=== PATIENT | female | born 1990 | race Hispanic/Latino ===

== ENCOUNTER 2018-02-28 13:55 | Outpatient (CLI) | payer OTHER ==
--- NOTE | 2018-02-28 15:24 | ULT ---
OBSTETRIC SONOGRAM TWIN : HISTORY: Twin gestation. Large for dates. Third trimester. FINDINGS: Multiple transabdominal sonographic views of the gravid uterus show a twin intrauterine gestation. G rade I placenta is posterior. Cervix is mostly obscured by ossified cranium. Fetus A designated as that in breech presentation. The amniotic fluid index is 9.6. Advanced age limits anatomic detail. Heart motion at 147 b.p.m. Measurements are as follows: Biparietal diameter 29 weeks 5 days. Head circumference 31 weeks 2 days. Abdominal circumference 30 weeks 5 days. Femur length 31 weeks 0 days. Estimated date of delivery based on today's sonogram 05/04/18. Estimated weight 1342 gm (3 agustina nds 10 ounces). Fetus B is designated as that in cephalic presentation. Posterior placenta. Amniotic fluid index 8. 3. Heart motion at 147 b.p.m. Advanced age limits anatomic detail. Measurements are as follows: Biparietal diameter 29 weeks 6 days. Head circumference 30 weeks 4 days. Abdominal circumference 30 weeks 6 days. Femur length 31 weeks 0 days. Estimated date of delivery based on today's sonogram 05/05/18. Estimated weight 1638 gm. IMPRESSION: Twin viable intrauterine gestation with estimated gestational ages of 30 weeks 5 days and 30 weeks 4 days. POS: [facility]
== END 2018-02-28 13:56 | disposition home or self-care (01) ==
LOC: SCSULT 13:55
PROVIDERS: ATTEND Obstetrics & Gynecology
DX: O30.003 Twin pregnancy, unspecified number of placenta and unspecified number of amniotic sacs, third trimester (principal); Z3A.31 31 weeks gestation of pregnancy
CPT/HCPCS: 76810

== ENCOUNTER 2018-03-11 15:06 | Outpatient (CLI) | payer OTHER ==
--- NOTE | 2018-03-11 19:06 | ULT ---
ULTRASOUND OBSTETRICAL COMPLETE: Date: 03/11/18 HISTORY: O30.003 twin in third trimester. COMPARISON: 02/28/18. FINDINGS: There is a twin gestation. Because this is third trimester, it is difficult to determine amnionicity. Maternal cervix: Poorly visualized. TWIN A: lie: Breech. heart rate: 139 BPM. Placenta: anterior. No placenta previa. Amniotic fluid volume: PJ 8.5 cm. anatomy: Head, four chamber heart, stomach, cord insertion, bladder, and three vessel cord are visualized. The rest of the anatomy is not well visualized due to third trimester stage of . BPD: 8.9 cm, 35W/5D HC: 31.5 cm, 35W/3D AC: 31.9 cm, 35W/6D FL: 6.8 cm, 35W/0D AUA: 35W/4D EDC: 04/11/2018. EFW: 2702 g +/- 400 g (5 lb 15 oz +/- 14 oz) TWIN B: Placenta: Posterior. Amniotic fluid: PJ 8.0 cm. heart rate: 152 BPM. lie: Cephalic. anatomy: Head, four chamber heart, stomach, cord insertion, bladder, and three vessel cord are visualized. The rest of the anatomy is not well visualized. BPD: 8.2 cm, 32W/6D HC: 31.5 cm, 35W/3D AC: 30.1 cm, 34W/0D FL: 6.2 cm, 32W/2D AUA: 33W/6D EDC: 04/23/2018. EFW: 2225 g +/- 329 g (4 lb 14 oz +/- 12 oz) There are abnormally dilated maternal blood vessels on the right side of the uterus, a new finding si nce the previous ultrasound. IMPRESSION: 1. Third trimester dichorionic twin gestation. 2. A discrepancy has developed between the sizes of Twin A and Twin B. Twin A is larger (measuring 1 2 days larger than Twin B). This raises the possibility of macrosomia for Twin A. 3. Apparently new very dilated maternal blood vessels to the right side of the uterus. POS: [facility]
== END 2018-03-11 15:07 | disposition home or self-care (01) ==
LOC: SCSULT 15:06
PROVIDERS: ATTEND Student in an Organized Health Care Education/Training Program
DX: O30.003 Twin pregnancy, unspecified number of placenta and unspecified number of amniotic sacs, third trimester (principal); O35.8XX2 Maternal care for other (suspected) fetal abnormality and damage, fetus 2; Z3A.35 35 weeks gestation of pregnancy
CPT/HCPCS: 76810

== ENCOUNTER 2018-03-21 15:14 | Outpatient (CLI) | payer MEDICAID ==
--- NOTE | 2018-03-21 16:50 | ULT ---
SONOGRPAHIC BIOPHYSICAL PROFILE TWIN A: SONOGRAPHIC BIOPHYSICAL PROFILE TWIN B: HISTORY: Twin . FINDINGS: Fetus A is designated as that, in cephalic presentation, with good tone, gross movements, and b reathing movements. Amniotic fluid index is 6.3. Fetus B is designated as that, in breech presentation, with foot tone, breathing movements, and gross movements demonstrated. Amniotic fluid index 7.4. IMPRESSION: Sonographic biophysical profile score for each twin is 8/8. POS: [facility]
== END 2018-03-21 15:15 | disposition home or self-care (01) ==
LOC: SCSULT 15:14
PROVIDERS: ATTEND Student in an Organized Health Care Education/Training Program
DX: O30.003 Twin pregnancy, unspecified number of placenta and unspecified number of amniotic sacs, third trimester (principal)
CPT/HCPCS: 76819

== ENCOUNTER 2018-03-28 15:08 | Outpatient (CLI) | payer MEDICAID, OTHER ==
--- NOTE | 2018-03-28 17:53 | ULT ---
OB ULTRASOUND 03/28/18 HISTORY: Twin intrauterine gestation in third trimester. Followup growth. COMPARISON: 03/11/18. FINDINGS: Again noted is twin intrauterine gestation with membrane between each fetus. The cervix is mostly obscured due to shadowing. TWIN A: lie: Breech. heart rate: 133 beats per minute. Placenta: Anterior without placenta previa. Amniotic fluid index 10.1 cm. measurements twin A: Biparietal diameter 8.58 cm 34 weeks, 4 days Head circumference 31.69 cm 35 weeks, 4 days Abdominal circumference 32 cm 35 weeks, 6 days Femur length 6.96 cm 35 weeks, 5 days The estimated gestational age of twin A is 35 weeks and 3 days with MARCE on 04/29/18. Gestational age by the last menstrual period is 35 weeks and 5 days. Estimated weight of twin A is 2742 grams (6 lb. 1 oz.). This represents the 49th percentile for weight. There has been interval growth when compared to the prior exam. TWIN B: lie: Breech. heart rate: 140 beats per minute. Placenta: Posterior. Amniotic fluid index 8.5 cm. measurements twin B: Biparietal diameter 8.35 cm 33 weeks, 4 days Head circumference 30.65 cm 34 weeks, 1 days Abdominal circumference 30.01 cm 34 weeks Femur length 6.61 cm 34 weeks The estimated gestational age of twin B by ultrasound is 34 weeks with MARCE on 05/09/18. Gestational a ge by the last menstrual period is 35 weeks and 5 days. Estimated weight of twin B is 2320 grams (5 lb. 2 oz.). This represents the 11th percentile for weight. There has been interval growth when compared to the prior exam. anatomical structures were not evaluated on this examination but were evaluated on prior study. IMPRESSION: 1. Twin intrauterine gestation with membrane noted. 2. Estimated gestational age of twin A by ultrasound is 35 weeks and 3 days with MARCE on 04/29/18 with gestational age of twin B of 34 weeks with estimated date of delivery on 05/09/18. 3. Estimated weight of twin A is 2742 grams (6 lb. 1 oz.) with estimated weight of t win B of 2320 grams (5 lb. 2 oz.). 4. Amniotic fluid index of twin A is 10.1 cm with amniotic fluid index of twin B measuring 8.5 c m. POS: [facility]
== END 2018-03-28 15:09 | disposition home or self-care (01) ==
LOC: SCSULT 15:08
PROVIDERS: ATTEND Student in an Organized Health Care Education/Training Program
DX: O30.003 Twin pregnancy, unspecified number of placenta and unspecified number of amniotic sacs, third trimester (principal); Z3A.35 35 weeks gestation of pregnancy
CPT/HCPCS: 76810

== ENCOUNTER 2018-04-11 20:45 | Inpatient (IN) | payer OTHER, SELFPAY ==
[2018-04-11 21:26] VITALS: BMI 36.7
[2018-04-11] MEDS: Lactated Ringer's 1,000 ML IV SCH (21:27)
[2018-04-11] MEDS ORDERED: Acetaminophen 500 MG TAB PO PRN (21:41)
[2018-04-11] MEDS ORDERED: Promethazine HCl 25 MG/ML VIAL IM PRN (21:41)
[2018-04-11] MEDS ORDERED: Ondansetron PF 4 MG/2 ML Vial IVP PRN (21:41)
[2018-04-11] MEDS ORDERED: Bicitra 30 ML UDCUP PO SCH (21:45)
[2018-04-11] MEDS ORDERED: NS / Oxytocin 40 units/1000ml 1,000 ML IV PRN (21:50)
[2018-04-11] MEDS ORDERED: Calcium Gluc 4.6 MEQ/10 ML (100 MG/ML) SLOW IVP PRN (21:50)
[2018-04-11] MEDS ORDERED: Lidocaine 1% (PF) 30 ML VIAL SC PRN (21:50)
[2018-04-11 21:54] LABS: Mean Corpuscular HGB CONC 33.6 g/dL (32.0-36.0); Mean Corpuscular Hemoglobin 30.5 pg (27.0-31.0); Mean Corpuscular Volume 90.8 fL (78.0-98.0); Mean Platelet Volume 9.5 fL (7.4-10.4); Platelet Count 138 thou/uL (130-400); RBC Distribution Width 14.3 % (11.5-14.5); Red Blood Cell (RBC) Count 3.92 mill/uL (4.20-5.40); White Blood Cell (WBC) Count 6.7 thou/uL (4.8-10.8)
--- NOTE | 2018-04-11 21:56 | PDOC.EVN ---
Event Note - Event Note Event Note: Faculty note: GBS coverage: No record found. I have requested one but Dr Damon not sure if she can get it. Unknown GBS status...defaults to risk factors (none yet)
--- NOTE | 2018-04-11 21:57 | PDOC.LDHP ---
Addendum entered and electronically signed by Atif Wilde MD 04/11/18 22:31: PIH - elevated pressure, 150/73 - no hx of elevated pressure per patient - will check CMP, CBC - monitor pressures Original Note: Labor and Delivery H&P Chief complaint: contractions HPI: This is a 27 yo F, , with di-di twins at 37.6 wks gestation w/ EDC 04/26/18 per record review. She comes in for eval of contractions every 10 minutes that have been becoming increasingly painful over the last 2 days. She does feel baby moving often. She denies vaginal bleeding, discharge, or rupture of membranes. States she has had slight burning with urination for the last few days, no blood in the urine. She denies headache, sob, or visual changes. Has had mild swelling at the ankles over the last few weeks. No N/V/D, no fevers, chills, or sweats. ROS General: denies: fever/chills, night sweats ENT: denies: sore throat, nasal congestion Cardiovascular: denies: chest pain, palpitation Respiratory: denies: cough, congestion, shortness of breath Gastrointestinal: denies: abdominal pain, constipation Genitourinary (Female): reports: dysuria denies: hematuria Neurologic: denies: numbness, weakness Integumentary: denies: rash Psychological: denies: depression PE General: NAD, awake, alert and oriented HEENT: normocephalic and atraumatic Neck: supple Heart: RRR, normal S1/S2 General: CTAB, no respiratory distress, good air movement Abdomen: soft, gravid Musculoskeletal: normal gait and station, pulses present Neurological: cranial nerves II through XII intact, no focal deficit Skin: capillary refill <2 seconds Current gestational age (weeks): 37 (37.6 wks) Due date: 04/26/18 Grav: 2 Para: 1 OB History Details: 1 term , uncomplicated per patient Current complications: di/di twins Past Medical History: negative per patient Current medications: pre- vitamins Previous surgical history: none Social history: none - Physical Exam Abnormal vital signs: blood pressure 150/73 FHT: category 1 - Vaginal Exam cm dilated: 0 Effacement: 0% Station: -3 - Plan -: # Term di/di labor r/o - 0/0/3 - Category 1 strip, cxns q8-10 minutes - scheduled for primary c/s on 04/14 - bedside US shows twin A vertex, twin B breech - mother would prefer vaginal delivery if possible - will admit for monitoring/induction, plan to start cytotec if indicated around midnight - will await records from [facility] - GBS status unknown, no risk factors at this time <Atif Wilde - Last Filed: 04/11/18 22:18> - Plan Plan: other (Patient seen and examined with Dr Wilde. Sono to confirm that TWIN A was cephalic was performed by Dr Wilde in my presence. Case reported to Dr Damon. We will admit for trial of cytotec for PIH. Check CMP. No PIH severe criteria.) <Alex Dahl - Last Filed: 04/11/18 22:43> Allergies/Adverse Reactions: Allergies Allergy/AdvReac Type Severity Reaction Status Date / Time No Known Drug Allergies Allergy Verified 04/11/18 21:14
[2018-04-11] MEDS ORDERED: Misoprostol 100 MCG TAB VAG SCH (22:00)
[2018-04-11 22:04] LABS: #Eosinphils 0.1 thou/uL (0.0-0.7); #Monocytes 0.6 thou/uL (0.11-0.59); #Neutrophils 3.8 thou/uL (1.40-6.50); %Basophils 0.6 % (0.0-1.0); %Eosinophils 0.8 % (0.0-10.0); %Lymphocytes 30.9 % (21.0-51.0); %Monocytes 9.6 % (0.0-10.0); %Neutrophils 58.1 % (42.0-75.0); Mean Corpuscular HGB CONC 33.1 g/dL (32.0-36.0); Mean Corpuscular Hemoglobin 30.1 pg (27.0-31.0); Mean Corpuscular Volume 90.8 fL (78.0-98.0); Mean Platelet Volume 9.5 fL (7.4-10.4); Platelet Count 133 thou/uL (130-400); RBC Distribution Width 14.3 % (11.5-14.5); Red Blood Cell (RBC) Count 3.97 mill/uL (4.20-5.40); White Blood Cell (WBC) Count 6.5 thou/uL (4.8-10.8)
--- NOTE | 2018-04-11 22:36 | HP ---
DATE OF ADMISSION: 04/11/2018 FACULTY H&P TIME OF EVALUATION: Roughly 2150 hours. LOCATION: Labor and Delivery triage A. REASON FOR EVALUATION: This is a patient of Dr. Damon. The patient has known twins and is at 37 weeks and 5 days. She was scheduled for on Saturday for persistent twin A breech presentation. The patient here for contractions. HISTORY OF PRESENT ILLNESS: In brief, this is a 27-year-old 2 , para 1 with a prior vaginal delivery in the past which was at term. She is now at 37 weeks and 5 days by stated EDC with irregular contractions. She is well known to Dr. Damon and I have been in communication with her since her arrival from the emergency department check in. This patient denies vaginal bleeding or leakage of fluid. She denies headaches or visual changes or right upper quadrant discomfort. REVIEW OF SYSTEMS: Complete review of systems was checked and is otherwise negative unless specified in the HPI. PAST MEDICAL HISTORY: Negative. PAST SURGICAL HISTORY: None. OB HISTORY: Significant for a vaginal delivery at term. SOCIAL HISTORY: Negative for alcohol, tobacco and drug use. PHYSICAL EXAMINATION: VITAL SIGNS: Blood pressures ranged from 150/80s to 140/90s. She is afebrile and respirations are unlabored. GENERAL: Clinically, she is in no acute distress. ABDOMEN: Gravid. PELVIS: Cervical exam by Dr. Wilde, performed under my presence, was closed. No evidence of vaginal bleeding or ruptured membranes. On monitor, heart tones are in the 130s-140s x2 with moderate variability. There are uterine irregular contractions on the tocodynamometer. Bedside ultrasound was confirmed to evaluate baby's positions and twin A was actually cephalic and twin B is transverse. This also agrees with the report that she gave and the patient had an ultrasound for position earlier today in the clinic and twin A was indeed cephalic. ASSESSMENT: This is a patient at 37 weeks and 5 days, G2, P1, with known twins who was thought to be breech-breech, but who now with twin A cephalic and twin B breech. Her blood pressures are mild range hypertensive. She is asymptomatic. PLAN: 1. I have discussed this case in depth with Dr. Damon. 2. Although, she is not grossly dilated, the fact that she has twins, almost 38 weeks, with borderline blood pressures, we will keep the patient for delivery due to her elevated blood pressures. 3. Cytotec will be ordered for her starting at midnight. 4. As twin A may be an unstable lie, as it was previously breech, we will evaluate the baby's position intrapartum and as labor progresses. 5. The patient was offered a primary versus trial of vaginal delivery and the patient does indeed desire a vaginal . She is aware that if the baby's position changes or becomes unstable she will require a . 6. Plan discussed with the patient, the nurses, and Dr. Atif Wilde who help to evaluate the patient. 7. The patient has a handwritten H&P in the physical chart as well. 8. We will also order a complete metabolic profile. MTDD
[2018-04-11 22:59] LABS: ALT (SGPT) 11 U/L (8-55); AST (SGOT) 22 U/L (5-34); Albumin 3.5 g/dL (3.5-5.0); Alkaline Phosphatase 244 U/L (40-150); Anion Gap 13 mmol/L (10-20); BUN (Urea Nitrogen) 10 mg/dL (7.0-18.7); Bilirubin, Total 0.2 mg/dL (0.2-1.2); Calc. Creatinine Clearance 182 mL/min (70-130); Calcium 8.6 mg/dL (7.8-10.44); Carbon Dioxide 21 mmol/L (22-29); Chloride 107 mmol/L (98-107); Estimated GFR-MDRD Greater than 90; Globulin 2.9 g/dL (2.4-3.5); Glucose 76 mg/dL (70-105); Potassium 4.3 mmol/L (3.5-5.1); Protein, Total 6.4 g/dL (6.0-8.3); Sodium 137 mmol/L (136-145)
[2018-04-11 23:08] LABS: Syphilis Antibody Nonreactive (Nonreactive); Syphilis Antibody Index 0.04 S/CO (<1.00 Non-Reactive)
[2018-04-11 23:24] LABS: HBSAg Index 0.23 S/CO (0-0.99); Hep B Surf Ag Non-Reactive S/CO (NonReactive)
[2018-04-12] MEDS: Lactated Ringer's 1,000 ML IV SCH ×3 (02:33→22:54)
--- NOTE | 2018-04-12 06:34 | PDOC.LDPN ---
Labor & Delivery Progress Note - Subjective Subjective: painful contractions - Objective Vital signs reviewed and normal: yes General: NAD Uterine fundus: non tender Dilation: 3 Effacement: 50% Station: -3 FHT: category 1 ( x2) [place] contractions every: 3min Procedures: ultrasound shows breech presentation - Assessment (1) Twin delivered Code(s): O30.009 - TWIN , UNSP NUM PLCNTA & AMNIO SACS, UNSP TRIMESTER Current Visit: Yes Status: Acute (2) Breech presentation Code(s): O32.1XX0 - MATERNAL CARE FOR BREECH PRESENTATION, UNSP Current Visit : Yes Status: Acute Qualifiers: Fetus number: fetus 1 of multiple gestation Qualified Code(s): O32.1XX1 - Maternal care for breech presentation, fetus 1 (3) delivery delivered Code(s): O82 - ENCOUNTER FOR DELIVERY WITHOUT INDICATION Current Visit: Yes Status: Acute -: Breech by sono and on exam, baby B on maternal right cephalic. Dispo for PCS for malpresentation with unstable lie. FHT reassuring x 2.
[2018-04-12] MEDS ORDERED: Bicitra 30 ML UDCUP PO SCH (06:45)
[2018-04-12] MEDS ORDERED: CEFAZOLIN 2 GM/50 ML BAG IVPB SCH (07:00)
[2018-04-12] MEDS ORDERED: Morphine PF 1 MG/ML SYR ONE (07:18)
[2018-04-12] MEDS ORDERED: ePHEDrine/0.9% NaCl/PF SYRINGE 50 mg/10 ml ONE (07:19)
[2018-04-12] MEDS ORDERED: Bupivacaine 0.75% W/DEXTROSE 8.25% 2 ML AMP ONE (07:19)
[2018-04-12] MEDS ORDERED: Ondansetron PF 4 MG/2 ML Vial ONE ×2 (07:19→14:33)
[2018-04-12] MEDS ORDERED: Oxytocin 10 UNITS/ML VIAL ONE (07:19)
[2018-04-12] MEDS ORDERED: Lidocaine 1% PF 5 ML VIAL ONE (07:19)
[2018-04-12] MEDS ORDERED: L&D-Morphine 4 MG/ML VIAL SLOW IVP PRN (08:11)
[2018-04-12] MEDS ORDERED: Eucerin (Mineral Oil/Petrolatum,White) 30 gm Jar TOP PRN (08:11)
[2018-04-12] MEDS ORDERED: diphenhydrAMINE 50 MG/ML VIAL IVP PRN (08:11)
[2018-04-12] MEDS ORDERED: Promethazine HCl 25 MG SUPP PR PRN (08:11)
[2018-04-12] MEDS ORDERED: Ondansetron PF 4 MG/2 ML Vial IVP PRN ×2 (08:11→15:39)
[2018-04-12] MEDS ORDERED: Meperidine HCl/PF 25 MG/ML VIAL SLOW IVP PRN (08:11)
[2018-04-12] MEDS ORDERED: Naloxone HCl 0.4 mg/ml Vial IVP PRN ×2 (08:11)
[2018-04-12] MEDS ORDERED: Ondansetron HCl/PF 4 MG/2 ML Vial IVP PRN (08:11)
[2018-04-12] MEDS ORDERED: Promethazine HCl 25 MG/ML VIAL IM PRN (08:11)
[2018-04-12] MEDS ORDERED: HYDROmorphone 2 MG/ML VIAL SLOW IVP PRN (08:11)
[2018-04-12] MEDS ORDERED: Naloxone HCl 0.4 mg/ml Vial IV PRN (08:11)
[2018-04-12] MEDS ORDERED: Ketorolac Tromethamine 30 MG/ML VIAL IVP SCH (08:15)
[2018-04-12] MEDS ORDERED: Communication Order-Pharmacy FS SCH (08:15)
--- NOTE | 2018-04-12 08:38 | PDOC.OPDEL ---
OB Operative/Delivery Note Delivery Dr/Surgeon: Marisol Assist: n/a Pre-Delivery Diagnosis: breech (edenilson twins, early labor, GHTN) Procedure/Post Delivery Dx: primary low transverse CS Weeks gestation: 37 Anesthesia: spinal - Findings A Sex: female B Sex: female - Additional Findings/Plan Placenta delivered: spontaneous findings: low transverse hysterotomy without extension, normal uterus, normal tubes, normal ovaries Estimated blood loss: 1200cc, qbl pending Post delivery plan: routine recovery
[2018-04-12] MEDS ORDERED: Methylergonovine 0.2 MG/ML VIAL ONE (10:42)
[2018-04-12] MEDS: Ketorolac Tromethamine 30 MG/ML VIAL IVP PRN (11:12)
[2018-04-12] MEDS ORDERED: Ketorolac Tromethamine 30 MG/ML VIAL ONE (11:12)
[2018-04-12] MEDS ORDERED: Acetaminophen 325 MG TAB PO PRN (15:39)
[2018-04-12] MEDS ORDERED: diphenhydrAMINE 25 MG CAP PO PRN (15:39)
[2018-04-12] MEDS ORDERED: Lanolin Ointment 7 GM TUBE TOP PRN (15:39)
[2018-04-12] MEDS ORDERED: Adacel (T-DAP) 0.5 ML VIAL IM ONE (15:39)
[2018-04-12] MEDS ORDERED: Simethicone Chewable 80 MG TAB PO PRN (15:39)
[2018-04-12] MEDS ORDERED: Bisacodyl 10 MG SUPP PR PRN (15:39)
[2018-04-12] MEDS ORDERED: Docusate Calcium (SURFAK) 240 MG CAP PO SCH (16:00)
[2018-04-12] MEDS ORDERED: Ferrous Sulfate 325 MG TAB PO SCH (16:00)
[2018-04-12] MEDS ORDERED: Prenatal Vitamin 1 TAB PO SCH (16:00)
--- NOTE | 2018-04-12 19:43 | OP ---
DATE OF PROCEDURE: 04/12/2018 PREOPERATIVE DIAGNOSES: 1. Intrauterine at 37 weeks, 5 days. 2. Male presentation baby A presenting breech. 3. Early labor. 4. Gestational hypertension. POSTOPERATIVE DIAGNOSES: 1. Intrauterine at 37 weeks, 5 days. 2. Male presentation baby A presenting breech. 3. Early labor. 4. Gestational hypertension. 5. hemorrhage. PROCEDURE: Primary low transverse section via Pfannenstiel skin incision. ANESTHESIA: Spinal. ATTENDING SURGEON: Brittany Damon M.D. PILE DRIVING SETTER: Samantha Boothe. ESTIMATED BLOOD LOSS: 1610. URINE OUTPUT: 600 mL of clear urine. PATHOLOGY: Placenta. COMPLICATIONS: None. DRAINS: العلي catheter. FINDINGS: Baby A girl, complete breech, clear amniotic fluid. Apgars and weight currently pending, vigorous baby B cephalic clear fluid. Apgars, weight currently pending, vigorous. Normal uterus, ov lucien and tubes bilaterally. OPERATIVE TECHNIQUE: The patient was taken to the operating room where spinal anesthesia was obtaine d without difficulty. The patient was prepped and draped in a sterile fashion in the dorsal supine p osition with a leftward tilt. After ensuring adequacy of anesthesia, a Pfannenstiel skin incision wa s made and carried down to the underlying subcutaneous tissue with the knife and the Bovie for hemost asis. The fascia was nicked in the midline with the Bovie and carried laterally with the Rosario scisso rs. The superior aspect of the fascia was tented with 2 Kochers and dissected off the rectus bluntly . The inferior aspect of the fascia was tented with 2 Kochers and dissected off the rectus with the Rosario scissors. Perforators were cauterized. The peritoneum was bluntly entered and manually retract ed. The Clement O retractor was placed. The lower uterine segment was incised in a transverse fashio n and extended with the Mcgee maneuver. The breech was brought to the hysterotomy and delivered with standard breech maneuvers without difficulty using a moist towel. The 's cord was clamped and handed to awaiting sb team. The second baby was presenting cephalic and the head was grasped and brought to the hysterotomy and delivered with fundal pressure followed by the body without diffi culty. The cord was clamped and handed to awaiting sb team. Cord blood was obtained of both placen tas and the placenta was allowed to spontaneously deliver. There were multiple venous lakes at the l evel of the hysterotomy that were briskly bleeding and these were clamped with ring forceps. The alvaro rine tone was noted to improve quickly after placental delivery and administration of Pitocin. The h ysterotomy was then repaired with #1 Monocryl in a running locking fashion. There was diffuse oozing from the hysterotomy noted. At that time, a second imbricating layer was placed of #1 Monocryl in a horizontal fashion. There was continued oozing from the mid portion of the hysterotomy and this was attempted to be hemostatic with first a oazirz-hj-gluwo #1 Monocryl followed by a yayvpn-tv-dyatd of 2-0 Vicryl. It was noted; however, each stitch that was thrown just cause a little more serosal ble eding due to these large venous lakes underlying therefore, pressure was held for approximately 2 min utes and bleeding was noted to greatly improved. FloSeal was called for at that time, there was no e xcessive bleeding at that time. However, the majority of the hemorrhage occurred during immediately following the placental delivery and during the repair of the hysterotomy. The FloSeal was placed an d hemostasis was noted to be excellent. Prior to this, copious irrigation of the pelvis and pericoli c gutters was performed and all clots were suctioned. The Clement was removed out of the abdomen. Th e peritoneum was closed with a 2-0 chromic in a running fashion. The rectus muscles were examined an d noted to be hemostatic. The fascia was reapproximated with a #1 PDS x1 suture with excellent reapp roximation. Subcutaneous tissue was irrigated and cauterized of any bleeders and reapproximated with a 2-0 plain gut in a running fashion and the skin was closed with 4-0 Monocryl in subcuticular fashi on. Dermabond was applied. The patient tolerated procedure well. Sponge and needle counts were cor rect x2. The patient was taken to recovery room in stable condition.
[2018-04-12] MEDS ORDERED: HYDROcodone/Acetaminophen 5/325 mg Tablet PO PRN (20:15)
[2018-04-12] MEDS: Docusate Calcium (SURFAK) 240 MG CAP PO SCH (21:45)
[2018-04-13] MEDS: Ketorolac Tromethamine 30 MG/ML VIAL IVP PRN (03:06)
[2018-04-13 06:23] LABS: Hemoglobin 8.6 g/dL (12.0-16.0); Mean Corpuscular HGB CONC 33.5 g/dL (32.0-36.0); Mean Corpuscular Hemoglobin 30.4 pg (27.0-31.0); Mean Corpuscular Volume 90.8 fL (78.0-98.0); Mean Platelet Volume 8.7 fL (7.4-10.4); Platelet Count 7 thou/uL (130-400); RBC Distribution Width 14.3 % (11.5-14.5); Red Blood Cell (RBC) Count 2.82 mill/uL (4.20-5.40); White Blood Cell (WBC) Count 10.8 thou/uL (4.8-10.8)
[2018-04-13 07:54] LABS: Hemoglobin 8.7 g/dL (12.0-16.0); Mean Corpuscular HGB CONC 33.1 g/dL (32.0-36.0); Mean Corpuscular Hemoglobin 30.2 pg (27.0-31.0); Mean Corpuscular Volume 91.1 fL (78.0-98.0); Mean Platelet Volume 8.2 fL (7.4-10.4); Platelet Count 118 thou/uL (130-400); RBC Distribution Width 14.4 % (11.5-14.5); Red Blood Cell (RBC) Count 2.88 mill/uL (4.20-5.40)
[2018-04-13 08:16] LABS: #Lymphocytes 1.8 thou/uL (1.20-3.40); #Monocytes 0.7 thou/uL (0.11-0.59); #Neutrophils 9.4 thou/uL (1.40-6.50); %Basophils 0.3 % (0.0-1.0); %Eosinophils 0.2 % (0.0-10.0); %Lymphocytes 14.9 % (21.0-51.0); %Monocytes 6.2 % (0.0-10.0); %Neutrophils 78.4 % (42.0-75.0)
[2018-04-13 08:23] LABS: Band 3 % (5-11); Large Platelets SLIGHT; Lymphocytes 13 % (21-51); MDiff Complete? YES; Monocytes 9 % (0-10); Neutrophil 74 % (42-75); PLT Morphology Comment Appears Decreased; Polychromasia SLIGHT = 2-3 cells (100X) (0-2/hpf); Reactive Lymphocytes 1 % (0-10)
[2018-04-13] MEDS: Docusate Calcium (SURFAK) 240 MG CAP PO SCH ×2 (09:30→21:28)
[2018-04-13] MEDS: Ferrous Sulfate 325 MG TAB PO SCH ×2 (09:30→15:03)
[2018-04-13] MEDS: Prenatal Vitamin 1 TAB PO SCH (09:30)
--- NOTE | 2018-04-13 09:35 | PRG ---
DATE OF SERVICE: 04/13/2018 TIME OF SERVICE: 0700. SUBJECTIVE: The patient is postoperative day #1 from a primary section for breech presentat ion. She had an approximately 1600 mL Quantitative blood loss at the time of section. The patient has been resting well with stable vital signs, pulse less than 100. Good urine output. No b lood noted in the urine. Minimal amount of blood noted on the pad. PHYSICAL EXAMINATION: GENERAL: female resting comfortably, denies significant pain. ABDOMEN: Soft and nontender, without rebound or guarding. There is no distention. Fundus is firm. EXTREMITIES: Without clubbing, cyanosis or edema. LABORATORY STUDIES: Hematocrit this morning went from 36-26, which is not unexpected from the patien t's QBL. Platelet count is reported as having dropped from 33,000-7000 currently. Initial callback of critical value from the lab with a value of 75,000. entry level receptionist into the computer system from the lab was delayed approximately 30-45 minutes from call back and entered value was 7000. Upon calling the lab, there have been a ion exchange operator the shift technicians and the current shift animal health technician says t hat as far she can tell the actual value is 7000. It is unclear as to whether that is being read off of the actual machinery doing the CBC with platelet count or if she is just relaying that from some sort of manual process for the transfer of the results. Clinically, the patient's platelet count is not 7000 as there is no evidence of spontaneous hemorrhag e. A 75,000 makes much more sense considering the patient's surgical procedure, blood loss, and curr ent vital signs. We will have the patient remain in bed still and perform a stat repeat CBC with ana m telet count on her at this time and follow up those results. Dr. Philipp Carmona will be taking as OB Hospitalist at 0800 and will check out this patient if CBC not resulted by that time. If the actu al platelet count is 7000, we will transfuse platelets and consult Hematology or critical care.
[2018-04-13] MEDS: HYDROcodone/Acetaminophen 5/325 mg Tablet PO PRN (09:37)
[2018-04-13 10:03] LABS: Hemoglobin 9.1 g/dL (12.0-16.0); Mean Corpuscular HGB CONC 33.6 g/dL (32.0-36.0); Mean Corpuscular Hemoglobin 30.4 pg (27.0-31.0); Mean Corpuscular Volume 90.4 fL (78.0-98.0); Mean Platelet Volume 7.9 fL (7.4-10.4); Platelet Count 111 thou/uL (130-400); RBC Distribution Width 14.1 % (11.5-14.5); Red Blood Cell (RBC) Count 2.99 mill/uL (4.20-5.40); White Blood Cell (WBC) Count 12.3 thou/uL (4.8-10.8)
[2018-04-13 10:36] LABS: #Lymphocytes 1.7 thou/uL (1.20-3.40); #Monocytes 0.7 thou/uL (0.11-0.59); #Neutrophils 9.9 thou/uL (1.40-6.50); %Basophils 0.2 % (0.0-1.0); %Eosinophils 0.3 % (0.0-10.0); %Lymphocytes 13.4 % (21.0-51.0); %Monocytes 5.5 % (0.0-10.0); %Neutrophils 80.5 % (42.0-75.0); Band 4 % (5-11); Lymphocytes 10 % (21-51); MDiff Complete? YES; Monocytes 10 % (0-10); Neutrophil 72 % (42-75); PLT Morphology Comment Appears Decreased; Polychromasia SLIGHT = 2-3 cells (100X) (0-2/hpf); Reactive Lymphocytes 4 % (0-10)
[2018-04-13] MEDS: Ibuprofen 800 MG TAB PO SCH ×2 (15:04→21:28)
--- NOTE | 2018-04-13 17:07 | PDOC.EVN ---
Event Note - Event Note Event Note: No c/o this PM. VSS. AF. Abdomen soft, dressing is dry. Lochia is small. CBC repeated this AM; plts >100 k x2. H/H is 9.1 and 27 respectively. Plan: Routine postop care.
[2018-04-14] MEDS: Ibuprofen 800 MG TAB PO SCH ×3 (05:44→22:21)
[2018-04-14] MEDS: Prenatal Vitamin 1 TAB PO SCH (09:05)
[2018-04-14] MEDS: Ferrous Sulfate 325 MG TAB PO SCH ×2 (09:05→16:07)
[2018-04-14] MEDS: Docusate Calcium (SURFAK) 240 MG CAP PO SCH ×2 (09:06→22:21)
--- NOTE | 2018-04-14 10:54 | PDOC.PP ---
Post Progress Note Post Day #: 2 PO intake tolerated: yes Flatus: yes Ambulation: yes Vital Signs (12 hours) Temp Pulse Resp BP Pulse Ox 04/14/18 07:40 97.4 F L 78 18 131/79 97 04/14/18 04:02 98.5 F 81 18 128/82 04/14/18 00:41 98.2 F 90 18 129/73 Weight Weight 188 lb - Physical Examination General: NAD Cardiovascular: RRR Respiratory: non-labored breathing Abdominal: no distention, appropriately TTP Fundus firm & at: umb Skin: CS incision dry & intact, no rash Neurological: no gross focal deficits Psychiatric: normal affect Result Diagrams: 04/13/18 09:52 04/11/18 21:45 Additional Labs: Post Labs Blood Type O POSITIVE 04/11/18 21:45 Hep Bs Antigen Non-Reactive S/CO (NonReactive) 04/11/18 21:44 (1) Twin delivered Code(s): O30.009 - TWIN , UNSP NUM PLCNTA & AMNIO SACS, UNSP TRIMESTER Status: Acute (2) Breech presentation Code(s): O32.1XX0 - MATERNAL CARE FOR BREECH PRESENTATION, UNSP Status: Acute Qualifiers: Fetus number: fetus 1 of multiple gestation Qualified Code(s): O32.1XX1 - Maternal care for breech presentation, fetus 1 (3) delivery delivered Code(s): O82 - ENCOUNTER FOR DELIVERY WITHOUT INDICATION Status: Acute - Assessment/Plan POD2 s/p PCS for Breech presentation baby A, edenilson TIUP, early labor VSSAF, tmax 99, no sx infection. Hgb 12-->qbl approx 2L (including recovery)-->8.7, appropriate hgb, anemia due to surgical blood loss, no sx anemia, Iron on DC Met all postop milestones, Rh pos RImm. Cont postop care, home tomorrow if babies are d/c'd.
[2018-04-14] MEDS: HYDROcodone/Acetaminophen 5/325 mg Tablet PO PRN (15:53)
[2018-04-15] MEDS: Ibuprofen 800 MG TAB PO SCH ×2 (06:13→15:08)
[2018-04-15 09:00] VITALS: BP 127/74; TEMP 98.3
[2018-04-15] MEDS: Docusate Calcium (SURFAK) 240 MG CAP PO SCH (09:01)
[2018-04-15] MEDS: Ferrous Sulfate 325 MG TAB PO SCH (09:01)
[2018-04-15] MEDS: Prenatal Vitamin 1 TAB PO SCH (09:01)
--- NOTE | 2018-04-15 13:35 | PDOC.PP ---
Post Progress Note Post Day #: 3 PO intake tolerated: yes Flatus: yes Ambulation: yes Vital Signs (12 hours) Temp Pulse Resp BP Pulse Ox 04/15/18 08:59 98.3 F 74 18 127/74 98 Weight Weight 188 lb - Physical Examination General: NAD Respiratory: non-labored breathing Abdominal: no distention, appropriately TTP Fundus firm & at: umb-3 Extremities: negative homans (B) Skin: no rash Neurological: no gross focal deficits Psychiatric: normal affect Result Diagrams: 04/13/18 09:52 04/11/18 21:45 Additional Labs: Post Labs Blood Type O POSITIVE 04/11/18 21:45 Hep Bs Antigen Non-Reactive S/CO (NonReactive) 04/11/18 21:44 (1) Twin delivered Code(s): O30.009 - TWIN , UNSP NUM PLCNTA & AMNIO SACS, UNSP TRIMESTER Status: Acute (2) Breech presentation Code(s): O32.1XX0 - MATERNAL CARE FOR BREECH PRESENTATION, UNSP Status: Acute Qualifiers: Fetus number: fetus 1 of multiple gestation Qualified Code(s): O32.1XX1 - Maternal care for breech presentation, fetus 1 (3) delivery delivered Code(s): O82 - ENCOUNTER FOR DELIVERY WITHOUT INDICATION Status: Acute - Assessment/Plan POD3 s/p PCS for twins with baby A breech presentation. VSSAF Doing well met all milestones Pain controlled Bottlefeeding Rh pos RImm DC home FU 2 wk for inc check
== END 2018-04-15 16:31 | disposition home or self-care (01) | DRG 787 ==
LOC: L&D/OP 20:45 → L&D 04-12 02:56 → 3SE 04-12 15:22
PROVIDERS: ADMIT Student in an Organized Health Care Education/Training Program; ATTEND Student in an Organized Health Care Education/Training Program
PROC: 10D00Z1 Extraction of Products of Conception, Low, Open Approach (ICD-10-PCS; principal; 2018-04-12)
DX: O32.1XX1 Maternal care for breech presentation, fetus 1 (principal); D62 Acute posthemorrhagic anemia; O72.1 Other immediate postpartum hemorrhage; O32.0XX2 Maternal care for unstable lie, fetus 2; O30.043 Twin pregnancy, dichorionic/diamniotic, third trimester; Z3A.37 37 weeks gestation of pregnancy; Z37.2 Twins, both liveborn; O13.4 Gestational [pregnancy-induced] hypertension without significant proteinuria, complicating childbirth; O90.81 Anemia of the puerperium
CPT/HCPCS: 36415; 51702; 76815; 80053; 85027; 86780; 86850; 86900; 86901; 87340; 88307; 90471; 90686; 99285; G0008; J1885; J2001; J2210; J2274; J2405; J2590; J3490

== ENCOUNTER 2021-04-14 15:15 | Outpatient (CLI) | payer OTHER | END 2021-04-14 15:16 | disposition home or self-care (01) | LOC: BICULT 15:15 | PROVIDERS: ATTEND Nurse Practitioner Women's Health | DX: Z34.82 Encounter for supervision of other normal pregnancy, second trimester (principal); Z3A.21 21 weeks gestation of pregnancy | CPT/HCPCS: 76805 ==